=== PATIENT | male | born 1945 | race Caucasian/White ===

== ENCOUNTER 2016-12-05 09:34 | Emergency (ER) | payer MEDICARE ==
[~2016-12-05] VITALS: Ht 170.2 cm; Wt 73.6 kg
[~2016-12-05 09:34] MED LIST: ASPI-973 PO; FLUT16SP NS; HYG25 PO; IBUP200C PO
--- NOTE | 2016-12-05 09:36 | ED.REPORT ---
HPI-General Illness Date of Service Dec 05, 2016 ED Provider: The patient is a 71 year old male with history of pulmonary embolism, hepatitis B, and hypertension, who presents to the emergency department complaining of right-sided chest pain that has been intermittent over the last week. The episodes of pain last at most 2-3 minutes at a time, but usually last about 45 seconds. He has also noticed shortness of breath. He has noticed that the pain is worse with palpation. The pain sometimes wakes him from sleep. His symptoms are similar to when he was previously diagnosed with a pulmonary embolism. He was on Coumadin for 6 months and is no longer taking this medication. He denies cough, fever, chills, abdominal pain, nausea, vomiting or diarrhea. Nursing Notes Stated Complaint: CHEST PAIN Chief Complaint: Respiratory Complaints Nursing Notes Reviewed: Yes Allergies: Coded Allergies: codeine (Verified Allergy, Severe, 06/18/09) Scheduled Aspirin (Aspirin) 81 Mg Tablet 81 MG PO DAILY Chlorthalidone (Chlorthalidone) 25 Mg Tablet 25 MG PO DAILY Fluticasone Propionate (Fluticasone Propionate Nasal) 16 Gm Grover.susp 1 SPRAY NS BID Scheduled PRN Ibuprofen (Ibuprofen) 200 Mg Capsule 200 MG PO QID PRN PRN For Pain General Time Seen by MD: 09:36 Chief Complaint Chest pain Hx Obtained From: Patient Arrived By: Walk-in Sudden in Onset?: Yes Onset Occurred: 1 week ago Symptom Duration: Intermittent Location: : Chest Quality: Painful Radiation: : Does not radiate Severity: Current: Mild Severity: Maximum: Severe Recent Healthcare: No recent doctor visit, No recent hospitalization Similar Sx Previous: Yes Past Medical History Past Medical History Notes: GI: Dr. Ferro Past Medical History Pulmonay embolism Hypertension Hepatitis B Past Surgical History Cervical fusion Left elbow surgery Family History Noncontributory Smoking History Former Smoker Social History Other Social History: Good social support, Local resident Ambulatory Status Independent Review of Systems Full Review of Systems Respiratory: Reports: Shortness of breath Cardiovascular: Reports: Chest pain Complete sys rev & neg: except as marked. Physical Exam Vital Signs Vital Signs Date Time Temp Pulse Resp B/P Pulse Ox O2 Delivery O2 Flow Rate FiO2 12/05/16 12:30 36.5 79 20 138/86 98 Room Air 12/05/16 10:05 83 12 158/96 99 Room Air 12/05/16 09:39 36.7 83 16 164/102 96 Initial VS: Reviewed Head / Eyes: Atraumatic, Normocephalic, PERRL ENT: Mucous membranes moist, Conjunctiva normal, No scleral icterus Neck: Supple, Non-tender, Full range of motion Abdomen / GI: Soft, Non-tender, No guarding, No rebound, No distention Lymphatic: No lymphadenopathy Extremities: Vascular intact, Neuro intact, No swelling, No tenderness Skin: Warm, Dry, No cyanosis Neurologic: Alert, Oriented, Nonfocal Psychiatric: Mood/affect normal, Behavior normal, Normal thought content General/Constitutional: Awake, Alert, Well appearing Respiratory / Chest: Atraumatic, Breath sounds NL, Breath sounds = bilat, No respiratory distress, No rales, No rhonchi, No wheezing Cardiovascular: Heart rate NL, Regular rhythm, Heart sounds NL, No gallop, No murmurs, No rubs, Cap refill not delayed, Peripheral circulation NL Interpretation & Diagnostics Lab Results Interpretation Result Diagram: 12/05/16 1010 12/05/16 1010 Test 12/05/16 10:10 White Blood Count 8.1th/mm3 (3.8-10.1) Red Blood Count 6.25mil/mm3 (4.40-5.80) Hemoglobin 18.9g/dL (13.8-17.2) Hematocrit 54.9% (41.0-50.0) Mean Corpuscular Volume 87.8fL (81-100) Mean Corpuscular Hemoglobin 30.2pg (27.0-35.0) Mean Corpuscular Hemoglobin Concent 34.4% (32.0-37.0) Red Cell Distribution Width 13.4% (12.3-15.4) Platelet Count 222bil/L (150-400) Neutrophils (%) (Auto) 70.6% (40-74) Lymphocytes (%) (Auto) 15.5% (14-46) Monocytes (%) (Auto) 11.5% (4-12) Eosinophils (%) (Auto) 1.7% (0-5) Basophils (%) (Auto) 0.6% (0-3) Sodium Level 140mEq/L (134-144) Potassium Level 3.6mEq/L (3.5-5.2) Chloride Level 97mEq/L (97-108) Carbon Dioxide Level 25mmol/L (18-29) Blood Urea Nitrogen 21mg/dL (8-27) Creatinine 1.08mg/dL (0.76-1.27) Estimat Glomerular Filtration Rate 71mL/min (>59) Glucose Level 104mg/dL (60-99) Calcium Level 10.4mg/dL (8.5-10.1) Magnesium Level 1.7mg/dL (1.6-2.6) Total Bilirubin 1.0mg/dL (0.0-1.2) Aspartate Amino Transf (AST/SGOT) 48U/L (0-50) Alanine Aminotransferase (ALT/SGPT) 23U/L (0-44) Alkaline Phosphatase 68U/L (25-160) Troponin T 0.010ug/L (0.0-0.011) Total Protein 7.8g/dL (6.4-8.4) Albumin 4.3g/dL (3.4-5.0) Hold Lara Top Tube Received (Received) ECG Interpretation ECG Interpretation: Sinus rhythm with a rate of 79 PACs RBBB Time: 09:39 Interpreted by: ED physician ECG Interpretation: Unchanged from previous EKG Time: 09:59 Interpreted by: ED physician CT Chest Interpretation IMPRESSION: 1. No acute pulmonary embolus. 2. Large, partially characterized hypodense liver mass as described above. In the setting of cirrhosis, this finding is suspicious for hepatocellular carcinoma. Multiphase hepatic protocol CT is recommended. These findings were discussed with Dr. Sanchez at 11:43 AM on 12/05/16. Dictated by: Karlee Sosa M.D. on 12/05/2016 at 11:40 Study type: CT pulm angiogram Interpretation / Wet Read by: Interpret - Radiologist, Discussed w radiologist Re-Eval/Medical Decision Med Decision/Clinical Course Symptoms are not consistent with acute coronary syndrome and the patient does not have a pulmonary embolism, patient does have a liver mass which may be causing diaphragmatic irritation potentially. He is given a copy of the CT scan and informed that he should follow up urgently with his primary care for further evaluation and management of his symptoms and the possible liver mass. Return and follow-up precautions given. Source of Hx: Old records Time of Eval: 11:18 Re-Evaluation/Progress Note: Rechecked the patient. Discussed plan to wait for the CT scan. Time of Eval: 11:53 Re-Evaluation/Progress Note: Discussed workup results, diagnosis, and plan for discharge with outpatient followup. All questions were addressed. Counseled Regarding: Diagnosis, Lab results, Need for follow-up, When/why to return to ED Discharge & Departure Primary Impression: Chest pain Chest pain type: unspecified Qualified Code: R07.9 - Chest pain, unspecified Additional Impression: Liver mass Disposition: Home Discharge Condition All VS Reviewed: Yes Condition: Stable Patient Instructions: Chest Pain (ED) Additional Instructions: Thank you for entrusting us with your care today. Your workup today included: labs, EKG, and a chest CT. There is no evidence of a blood clot, heart attack, or pneumonia. Your CT scan did show evidence of a liver mass. You need to call your primary care provider for a urgent followup appointment for a CT directly of your liver. Use Tylenol and ibuprofen as needed for your pain. Please return to the emergency department for any new or concerning symptoms. Referrals: Zack Escalera MD (PCP) Kin Ferro MD Attestation Portions of this note were transcribed by Mindy Pagan. I, Dr. Antonio personally performed the history, physical exam and medical decision-making; I reviewed and confirmed the accuracy of the information in the transcribed note. Signed by: Miguel Meléndez, 12/05/2016 at 1215. copies to: Kin Ferro MD; Zack Escalera MD, Timothy S DO Dec 05, 2016 09:36 Mindy Pagan Dec 05, 2016 09:48
[2016-12-05 09:39] VITALS: BP 164/102; PULSE 83; RESP 16; O2SAT 96
[2016-12-05 10:05] VITALS: BP 158/96; PULSE 83; RESP 12; O2SAT 99
[2016-12-05 10:24] LABS: BASOPHILS % (AUTO) 0.6 % (0-3); EOSINOPHILS % (AUTO) 1.7 % (0-5); MONOCYTES % (AUTO) 11.5 % (4-12); Mean Corpuscular Hemoglobin 30.2 pg (27.0-35.0); Mean Corpuscular Volume 87.8 fL (81-100); NEUTROPHILS % (AUTO) 70.6 % (40-74); Platelet Count 222 bil/L (150-400)
[2016-12-05 10:45] LABS: TROPONIN T 0.01 ug/L (0.0-0.011)
[2016-12-05 10:57] LABS: Magnesium 1.7 mg/dL (1.6-2.6)
--- NOTE | 2016-12-05 11:47 | DRSVH ---
PROCEDURE: CT ANGIO CHEST PULMONARY EMBOLISM ([id number]) INDICATIONS: chest pain, ho PE TECHNIQUE: After the administration of intravenous contrast, 2 mm thick sections acquired from the pulmonary api ely to the posterior costophrenic angles. 3-dimensional maximum intensity projection (MIP) coronal a nd sagittal reformats were then acquired through the thorax. For radiation dose reduction, the follo wing was used: automated exposure control, adjustment of mA and/or kV according to patient size. COMPARISON: [facility], CT, KUB - CT ([facility] 03/07/2014, 19:20. FINDINGS: Image quality: Excellent. Pulmonary arteries: Pulmonary arteries are normal in size, and demonstrate no intraluminal filling d efects to suggest central pulmonary embolism. Lungs and pleura: There is severe centrilobular emphysema with an apical predominance. Trace parasept al emphysema is present at the upper lungs as well. Mediastinum: Heart size is normal, without pericardial effusion. No mediastinal or hilar adenopathy . Thoracic aorta is normal in caliber and enhancement. Esophagus is normal in caliber, without hiat al hernia. Bones and chest wall: No suspicious bony lesions. Ribs and thoracic spine appear intact throughout. Thyroid gland is unremarkable. No axillary or supraclavicular adenopathy. Abdomen: The liver demonstrates surface nodularity. An ill-defined hypodense mass is present within h epatic segment . The visualized upper abdominal organs are otherwise unremarkable in the absence of contrast. IMPRESSION: 1. No acute pulmonary embolus. 2. Large, partially characterized hypodense liver mass as described above. In the setting of cirrhosi s, this finding is suspicious for hepatocellular carcinoma. Multiphase hepatic protocol CT is recomme nded. These findings were discussed with Dr. Sanchez at 11:43 AM on 12/05/16. Dictated by: Karlee Sosa M.D. on 12/05/2016 at 11:40 Approved by: Karlee Sosa M.D. on 12/05/2016 at 11:46
[2016-12-05 12:30] VITALS: BP 138/86; PULSE 79; RESP 20; O2SAT 98
== END 2016-12-05 12:31 | disposition home or self-care (01) ==
LOC: SED 09:34
DX: R07.9 Chest pain, unspecified (principal); R16.0 Hepatomegaly, not elsewhere classified; R06.02 Shortness of breath; I10 Essential (primary) hypertension; Z79.82 Long term (current) use of aspirin; Z87.891 Personal history of nicotine dependence; Z88.5 Allergy status to narcotic agent
CPT/HCPCS: 36415; 71275; 80053; 83735; 84484; 85025; 93005; 99285; Q9967